=== PATIENT | female | born 1955 | race Caucasian/White ===

== ENCOUNTER 2022-07-25 15:57 | Inpatient (IN) | payer MEDICARE, SELFPAY ==
[2022-07-25] VITALS (22 sets, daily range): BP systolic 140–174; BP diastolic 65–85; PULSE 74–95; RESP 16–25; TEMP 37.6–37.9; O2SAT 93–99; BMI 33.4
--- NOTE | ~2022-07-25 | XR_ITS ---
EXAMINATION: XR chest 1V portable DATE: 07/26/2022 08:51 INDICATION: Leukocytosis. TECHNIQUE: A single frontal view of the chest was obtained. COMPARISON: None. FINDINGS: There are airspace opacities in the lower lung zones. No pleural effusion or pneumothorax. The heart size is normal. A right upper extremity peripherally inserted central venous catheter (PICC ) is seen with tip at the superior cavoatrial junction. IMPRESSION: 1. Airspace opacities in the lower lung zones, consistent with atelectasis or less likely pneumonia. Reviewed, dictated and finalized at location A. IMPRESSION: 1. Airspace opacities in the lower lung zones, consistent with atelectasis or l ess likely pneumonia.
[2022-07-25 16:31] LABS: Basophils Absolute Auto 0.1 K/mm3 (0.0-0.1); Basophils Percent Auto 0.3 % (0.2-1.2); Eosinophils Absolute Auto 0.1 K/mm3 (0-0.3); Eosinophils Percent Auto 0.5 % (0-4.4); Hematocrit 24.4 % (37.0-47.0); Hemoglobin 8.3 g/dL (12.0-15.0); Immature Granulocyte Absolute 0.62 K/mm3 (0.00-0.031); Immature Granulocyte Percent A 3.7 % (0-0.5); Mean Corpuscular Hemoglobin 31.4 pg (26-34); Mean Corpuscular Volume 92.4 fl (80-100); Mean Platelet Volume 8.6 fl (7.4-10.4); Monocytes Absolute Auto 1.4 K/mm3 (0.1-0.6); Monocytes Percent Auto 8.3 % (2.6-8.5); Neutrophils Percent Auto 78.2 % (45.5-73.1); Nucleated Red Blood Cells Absolute Auto 0.1 K/mm3 (0.0-0.012); Nucleated Red Blood Cells Perc 0.6 % (0.0-0.2); Platelet Count Result 338 k/mm3 (150-375); Red Blood Count 2.64 M/mm3 (4.2-5.4); White Blood Count 16.6 K/mm3 (4.5-10.0)
--- NOTE | 2022-07-25 16:31 | ED.RECABL ---
HPI - Recheck/Abnormal Lab/Rx General Chief Complaint: Recheck/Abnormal Lab/Rx Stated Complaint: abnormal labs Time Seen by Provider: 07/25/22 16:25 History of Present Illness HPI narrative: Pt sent in from rehab facility due to low sodium per pt. Pt has a history of similar in past. Pt jennifer any new symptoms. Related Data Allergies Allergy/AdvReac Type Severity Reaction Status Date / Time No Known Allergies Allergy Verified 07/20/22 17:06 Review of Systems Review of Systems: All systems reviewed & are unremarkable except as noted in HPI and below PMFSH Past Medical History Medical History (Updated 07/25/22 @ 18:02 by Meghan Rios III, DO) A-fib Social History Social History (Updated 07/20/22 @ 19:00 by Shanita Peng RN) Smoking status: Never smoker Alcohol intake: never Substance use type: does not use Gender identity (if verbalized by the patient): Female Sexual Orientation (if Verbalized by the Patient): Straight or Heterosexual Spiritual care concerns: No Exam Const: General: healthy appearing Nutritional Appearance: well nourished Orientation/consciousness: patient oriented x3 Limitations: no limitations HENMT: Head: normal to inspection Mouth: Yes Normal oral and palatal mucosa present Eyes: Conjunctivae: conjunctivae normal EOM: EOMs intact bilaterally Neck: Neck: normal visual inspection Chest: Chest palpation & inspection: normal inspection of the chest Resp: Effort & Inspection: normal respiratory effort Auscultation: clear to auscultation bilaterally Cardio: Rate: regular rate Rhythm: regular rhythm GI: GI Palp: Yes Soft to palpation Auscultation: normal bowel sounds Back/Spine/Pelvis: Back: no CVA tenderness Skin: General skin exam: normal color Rashes: no rashes Wounds: no wounds Neuro: General: patient oriented x3 and moves all extremities Cranial nerves: Yes Nystagmus not present Speech: normal speech Extrem: General: normal to inspection and no clubbing, cyanosis or edema Psych: Mental Status: mental status grossly normal Affect: normal affect Attitude: cooperative Course Vital Signs Vital signs: Vital Signs Temperature 99.6 F 07/25/22 16:00 Pulse Rate 75 07/25/22 16:00 Respiratory Rate 24 H 07/25/22 16:00 Blood Pressure 161/65 H 07/25/22 16:00 Pulse Oximetry 99 07/25/22 16:00 Oxygen Delivery Room Air 07/25/22 16:00 Temperature 99.6 F 07/25/22 16:00 Pulse Rate 77 07/25/22 17:30 Respiratory Rate 21 H 07/25/22 17:30 Blood Pressure 161/65 H 07/25/22 16:00 Pulse Oximetry 93 07/25/22 17:30 Oxygen Delivery Room Air 07/25/22 16:00 MDM - Recheck/Abnormal Lab/Rx Lab Data Result diagrams: 07/25/22 16:24 07/25/22 16:24 Labs: Lab Results 07/25/22 07/25/22 07/25/22 Range/Units 16:24 16:24 16:24 WBC 16.6 H (4.5-10.0) K/mm3 RBC 2.64 L (4.2-5.4) M/mm3 Hgb 8.3 L (12.0-15.0) g/dL Hct 24.4 L (37.0-47.0) % MCV 92.4 (80-100) fl MCH 31.4 (26-34) pg MCHC 34.0 (32-36) g/dl RDW 14.0 (11.5-14.5) % Plt Count 338 (150-375) k/mm3 MPV 8.6 (7.4-10.4) fl Immature Gran % (Auto) 3.7 H (0-0.5) % Neut % (Auto) 78.2 H (45.5-73.1) % Lymph % (Auto) 9.0 L (18.3-44.2) % [place] % (Auto) 8.3 (2.6-8.5) % Eos % (Auto) 0.5 (0-4.4) % Baso % (Auto) 0.3 (0.2-1.2) % Lymph # (Auto) 1.50 (0.9-3.2) K/mm3 [place] # (Auto) 1.4 H (0.1-0.6) K/mm3 Eos # (Auto) 0.1 (0-0.3) K/mm3 Baso # (Auto) 0.1 (0.0-0.1) K/mm3 Abs Immat Gran (auto) 0.62 H (0.00-0.031) K/mm3 Absolute Neuts (auto) 13.0 H (1.3-6.7) K/mm3 Absolute Nucleated RBC 0.1 H (0.0-0.012) K/mm3 Nucleated RBC % 0.6 H (0.0-0.2) % Sodium 118 L* (137-145) mmol/L Potassium 3.3 L (3.4-5.0) mmol/L Chloride 82 L (98-107) mmol/L Carbon Dioxide 28 (22-30) mmol/L Anion Gap 8 (8-16) mmol/L BUN 13 (7-17) mg/dL Creat
--- NOTE | 2022-07-25 16:33 | ECG_ITS ---
Measurements Intervals [place] Rate: 77 P: 24 FL: 163 QRS: -10 QRSD: 113 T: 31 QT: 412 QTc: 467 Interpretive Statements SINUS RHYTHM WITH OCCASIONAL SUPRAVENTRICULAR PREMATURE COMPLEXES INTRAVENTRICULAR CONDUCTION DELAY Electronically Signed On 07-26-2022 8:50:13 CDT by Jaylan Schroeder M.D.
[2022-07-25 16:53] LABS: Anion Gap 8 mmol/L (8-16); Blood Urea Nitrogen 13 mg/dL (7-17); Carbon Dioxide 28 mmol/L (22-30); Chloride 82 mmol/L (98-107); Estimated Glomerular Filt Rate > 60; Glucose 105 mg/dL (65-110); Potassium 3.3 mmol/L (3.4-5.0); Sodium 118 mmol/L (137-145)
[2022-07-25 17:02] LABS: Alanine Aminotransferase 21 U/L (6-35); Albumin Level 3.6 g/dL (3.5-5.1); Alkaline Phosphatase 79 U/L (38-126); Aspartate Amino Transferase 36 U/L (14-36); Bilirubin,Total 1.2 mg/dL (0.2-1.3)
[2022-07-25] MEDS: SODIUM CHLORIDE 0.9% IV 1,000 ML 125 ML IV CONT (19:40)
--- NOTE | 2022-07-25 20:24 | PM.IMHP ---
H&P: HPI History of Present Illness Date/Time: 07/25/22 20:24 Chief Complaint: Low-sodium Narrative: This is a 66-year-old female with past medical history significant for chronic hyponatremia, recent fall with trauma to the left upper extremity and left lower extremity, patient has been residing at rehabilitation center she was brought in today after lab draws showed a low sodium. Patient denies any fevers, rigors, chills, cough, sputum production, nausea, vomiting, diarrhea, abdominal pain, no dizziness, no near syncope no syncope, no lightheadedness, no chest pain, no shortness of breath, her appetite is good she has been participating with PT OT in the rehabilitation center. preliminary workup was significant for sodium was 118, chloride was 82, potassium was 3.3 [place] [address]. patient is been admitted for further evaluation, management and treatment. Review of Systems Review of Systems: Abnormal lab work low-sodium Constitutional: Constitutional: Denies chills, Denies fever(s), Denies malaise, Denies poor appetite and Denies weakness Eyes: Eyes: Denies change in vision ENT: Denies dysphagia, Denies vertigo, Denies dizziness and Denies odynophagia Cardiovascular: Cardiovascular: Denies chest pain, Denies syncope, Denies irregular heart rhythm, Denies lightheadedness and Denies palpitations Respiratory: Respiratory: Denies chest congestion, Denies cough, Denies excessive phlegm production, Denies pain on inspiration, Denies dyspnea and Denies wheezing Gastrointestinal: Gastrointestinal: Denies abdominal pain, Denies dyspepsia, Denies heartburn, Denies diarrhea, Denies nausea and Denies vomiting Genitourinary: Genitourinary: Denies dysuria Musculoskeletal: Musculoskeletal: Reports other ( left upper extremity and left lower extremity old fractures ) Integumentary/Breasts: Skin/Breast: Denies rash Psychiatric: Psychiatric: Reports no additional psychiatric complaints and Reports as per HPI Endocrine: Endocrine: Denies cold intolerance, Denies flushing, Denies heat intolerance, Denies polyphagia, Denies polydipsia and Denies palpitations Hematologic/Lymphatic: Hematologic/Lymphatic: Reports no additional hematologic/lymphatic complaints and Reports as per HPI Allergic/Immunologic: Allergic/Immunologic: Reports no additional allergic/immunologic complaints and Reports as per HPI [facility] Past Medical History Medical History (Updated 07/25/22 @ 18:02 by Meghan Rios III, DO) A-fib Social History Social History (Updated 07/20/22 @ 19:00 by Shanita Peng RN) Smoking status: Never smoker Alcohol intake: never Substance use: never Substance use type: does not use Gender identity (if verbalized by the patient): Female Sexual Orientation (if Verbalized by the Patient): Straight or Heterosexual Spiritual care concerns: No Meds Home Medications and Allergies Home Medications Medication Instructions Recorded Confirmed Type acetaminophen 325 mg tablet 325 mg PO Q6H 07/25/22 07/25/22 History baclofen 5 mg tablet 5 mg PO DAILY PRN Spasms 07/25/22 07/25/22 History bisacodyl 10 mg rectal suppository 10 mg RECTAL DAILY PRN Constipation 07/25/22 07/25/22 History calcium carbonate 200 mg calcium 200 mg PO Q2H PRN indigeston 07/25/22 07/25/22 History (500 mg) chewable tablet cefdinir 300 mg capsule 300 mg PO Q12H 07/25/22 07/25/22 History cholecalciferol (vitamin D3) 25 25 mcg PO BID 07/25/22 07/25/22 History mcg (1,000 unit) tablet clonidine HCl 0.1 mg tablet 0.1 mg PO TID PRN blood 07/25/22 07/25/22 History pressure-high diltiazem HCl 180 mg capsule,24 180 mg PO DAILY 07/25/22 07/25/22 History hr,extended release docusate sodium 100 mg capsule 100 mg PO BID 07/25/22 07/25/22 History doxycycline hyclate 100 mg tablet 100 mg PO BID 07/25/22 07/25/22 History enoxaparin 30 mg/0.3 mL 30 mg subcut Q12H 07/25/22 07/25/22 History subcutaneous syringe famotidine 20 mg tablet 20 mg PO DAILY
--- NOTE | 2022-07-25 22:46 | ADMGEN ---
This patient, Janett Anaya, was admitted to 3 [facility] Surg Room 315-01. Patient/family oriented to hospital policies and general routines including ID bracelet, bed and alarms, visiting hours, pain management, procedures, bathroom and other care routines, personal items, smoking policy, room service/diet, and visiting hours. Information on how to activate the Rapid Response Team has been discussed. Patient/Family are encouraged to report perceived risks to care and to ask questions if they do not understand what they are told or what they should do.
[2022-07-26] VITALS (10 sets, daily range): BP systolic 151–174; BP diastolic 64–80; PULSE 68–79; RESP 18; TEMP 36.4–37; O2SAT 96–98; BMI 33.4
[2022-07-26] MEDS: ONDANSETRON INJ 4 MG/2 ML VIAL IV PUSH ×2 (02:37→19:49)
[2022-07-26 06:03] LABS: Anion Gap 8 mmol/L (8-16); Blood Urea Nitrogen 10 mg/dL (7-17); Calcium 7.7 mg/dL (8.4-10.2); Carbon Dioxide 28 mmol/L (22-30); Chloride 85 mmol/L (98-107); Estimated CRCL calculation 84 ml/min; Estimated Glomerular Filt Rate > 60; Glucose 114 mg/dL (65-110); Magnesium 2.1 mg/dL (1.6-2.3); Potassium 3.3 mmol/L (3.4-5.0); Sodium 121 mmol/L (137-145)
[2022-07-26 06:30] LABS: Anion Gap 2 mmol/L (8-16); Blood Urea Nitrogen 9 mg/dL (7-17); Calcium 7.1 mg/dL (8.4-10.2); Carbon Dioxide 28 mmol/L (22-30); Chloride 84 mmol/L (98-107); Estimated CRCL calculation 99 ml/min; Estimated Glomerular Filt Rate > 60; Glucose 113 mg/dL (65-110); Potassium 3.5 mmol/L (3.4-5.0); Sodium 114 mmol/L (137-145)
[2022-07-26] MEDS: LIDOCAINE HCL 1% PF INJ 5 ML VIAL INFILTRATE (08:00)
[2022-07-26] MEDS: CEFDINIR 300 MG CAPSULE PO (09:14)
[2022-07-26] MEDS: CHOLECALCIFEROL 1,000 UNITS TABLET 1000 UNITS PO ×2 (09:15→16:41)
[2022-07-26] MEDS: dilTIAZem HCL CD 180 MG CAP.ER.24H PO (09:15)
[2022-07-26] MEDS: DOCUSATE SODIUM 100 MG CAPSULE PO ×2 (09:15→16:42)
[2022-07-26] MEDS: SODIUM CHLORIDE 1 GM TABLET PO ×2 (09:15→16:42)
[2022-07-26] MEDS: ROSUVASTATIN 10 MG TABLET PO (09:15)
[2022-07-26] MEDS: SENNA/DOCUSATE SODIUM TABLET 1 TAB PO ×2 (09:15→16:43)
[2022-07-26] MEDS: lisinopriL 20 MG TABLET PO ×2 (09:16→16:42)
[2022-07-26] MEDS: MAGNESIUM OXIDE 400 MG TABLET PO ×2 (09:16→16:42)
[2022-07-26] MEDS: ACETAMINOPHEN 325 MG TABLET PO (09:16)
[2022-07-26] MEDS: DOXYCYCLINE HYCLATE 100 MG TABLET PO (09:17)
[2022-07-26] MEDS: ENOXAPARIN 30 MG/0.3 ML SYRINGE SUB-Q ×2 (09:17→20:14)
[2022-07-26] MEDS: TOLNAFTATE 1% POWDER 45 GM BTL 1 APPLIC TOPICAL ×2 (09:18→20:14)
[2022-07-26] MEDS: FAMOTIDINE 20 MG TABLET PO (09:18)
[2022-07-26] MEDS: polyethylene glycoL 3350 17 GM POWD.PACK PO (09:24)
--- NOTE | 2022-07-26 11:00 | PM.IMPN ---
Progress Note: A&P Assessment and Plan (1) Hyponatremia: Code(s): E87.1 - Hypo-osmolality and hyponatremia Status: Acute Assessment and Plan: Sodium 114 this am is currently 118 States she runs low any way Sodium tabs continued from home at 1000mg TID IV fluids continued serial sodiums Q6H cautious normalization of sodium about 4-6 per 24 hours Nephrology consulted Baseline appears to be 123-129 (2) Multiple fractures: Code(s): T07.XXXA - Unspecified multiple injuries, initial encounter Status: Acute Assessment and Plan: fall precautions supportive care PT OT Non weight bearing on the left upper and lower Hip and arm fracture on the left from a fall (3) Afib: Code(s): I48.91 - Unspecified atrial fibrillation Status: Acute Assessment and Plan: Stable at this time Continue Cardizem Trend heart rate and rhythm Adjust therapy as indicated (4) Hypertension: Code(s): I10 - Essential (primary) hypertension Status: Chronic Assessment and Plan: Current BP is 159/64 Continue home lisinopril, clonidine Trend BP Adjust therapy as indicated (5) Leukocytosis: Code(s): D72.829 - Elevated white blood cell count, unspecified Status: Acute Assessment and Plan: WBC elevated at 16.6 Stop cefdinir start ceftriaxone and azithromycin Unknown if this is a recurrent UTI or PNA Chest xray appears to have atelectasis vs PNA trend labs Blood cultures ordered Time Spent With Patient Time with patient: Greater than 35 minutes Subjective Date/time seen: 07/26/22 1100 Interval history: 07/26/22 1100 Patient states that she has been urinating okay and denies any chest pain, shortness breast, nausea, vomiting. Patient stated that she has been weak however she does blame that on her and nonweightbearing status on her leg or arm. She denies having any urination issues and states that she is urinating okay. She states that her sodium is always low and that she takes sodium tabs 3 times a day. She also states that she does not sleep at night and sometimes goes long periods of times without sleep. Sodium is currently 118. Patient denies any abnormal swelling. Patient has unknown baseline sodium. 07/25/22? 20:24 ?This is a 66-year-old female with past medical history significant for chronic hyponatremia,? recent fall with trauma to the left upper extremity and left lower extremity, patient has been residing at rehabilitation center she was brought in today after lab draws showed a low sodium.? Patient denies any fevers, rigors, chills, cough, sputum production, nausea, vomiting, diarrhea, abdominal pain, no dizziness, no near syncope no syncope, no lightheadedness, no chest pain, no shortness of breath, her appetite is good she has been participating with PT OT in the rehabilitation center. preliminary workup was significant for sodium was 118, chloride was 82, potassium was 3.3 [place]BC [place] [address]26. patient is been admitted for further evaluation, management and treatment. Review of Systems Review of Systems: All systems reviewed & are unremarkable except as noted in HPI and below Exam Const: General: comfortable, no acute distress, well developed, alert and awake Nutritional Appearance: overweight Orientation/consciousness: patient oriented x3 HENMT: Head: normal to inspection, normocephalic and atraumatic Ears: hearing grossly normal bilaterally Face and sinus: normal facial exam Eyes: General: appearance normal, both eyes and all related structures Pupils: Equal, round and reactive pupils present EOM: EOMs intact bilaterally Neck: Neck: full ROM, no lymphadenopathy and no JVD Thyroid: thyroid normal Lymphatic: no lymphadenopathy noted Resp: Effort & Inspection: normal respiratory effort and able to speak in complete sentences Auscultation: clear to auscultat
--- NOTE | 2022-07-26 11:00 | P.PNIM_ITS ---
Progress Note: A&P Assessment and Plan (1) Hyponatremia: Code(s): E87.1 - Hypo-osmolality and hyponatremia Status: Acute Assessment and Plan: * Sodium 114 this am is currently 118 * States she runs low any way * Sodium tabs continued from home at 1000mg TID * IV fluids continued * serial sodiums Q6H * cautious normalization of sodium about 4-6 per 24 hours * Nephrology consulted * Baseline appears to be 123-129 (2) Multiple fractures: Code(s): T07.XXXA - Unspecified multiple injuries, initial encounter Status: Acute Assessment and Plan: * fall precautions * supportive care * PT OT * Non weight bearing on the left upper and lower * Hip and arm fracture on the left from a fall (3) Afib: Code(s): I48.91 - Unspecified atrial fibrillation Status: Acute Assessment and Plan: * Stable at this time * Continue Cardizem * Trend heart rate and rhythm * Adjust therapy as indicated (4) Hypertension: Code(s): I10 - Essential (primary) hypertension Status: Chronic Assessment and Plan: * Current BP is 159/64 * Continue home lisinopril, clonidine * Trend BP * Adjust therapy as indicated (5) Leukocytosis: Code(s): D72.829 - Elevated white blood cell count, unspecified Status: Acute Assessment and Plan: * WBC elevated at 16.6 * Stop cefdinir start ceftriaxone and azithromycin * Unknown if this is a recurrent UTI or PNA * Chest xray appears to have atelectasis vs PNA * trend labs * Blood cultures ordered Time Spent With Patient Time with patient: Greater than 35 minutes Subjective Date/time seen: 07/26/22 1100 Interval history: 07/26/22 1100 Patient states that she has been urinating okay and denies any chest pain, shortness breast, nausea, vomiting. Patient stated that she has been weak however she does blame that on her and nonweightbearing status on her leg or arm. She denies having any urination issues and states that she is urinating okay. She states that her sodium is always low and that she takes sodium tabs 3 times a day. She also states that she does not sleep at night and sometimes goes long periods of times without sleep. Sodium is currently 118. Patient denies any abnormal swelling. Patient has unknown baseline sodium. 08/29/22? 20:24 ?This is a 66-year-old female with past medical history significant for chronic hyponatremia,? recent fall with trauma to the left upper extremity and left lower extremity, patient has been residing at rehabilitation center she was brought in today after lab draws showed a low sodium.? Patient denies any fevers, rigors, chills, cough, sputum production, nausea, vomiting, diarrhea, abdominal pain, no dizziness, no near syncope no syncope, no lightheadedness, no chest pain, no shortness of breath, her appetite is good she has been participating with PT OT in the rehabilitation center. preliminary workup was significant for sodium was 118, chloride was 82, potassium was 3.3 [place]BC was [address]672. patient is been admitted for further evaluation, management and treatment. Review of Systems Review of Systems: All systems reviewed & are unremarkable except as noted in HPI and below Exam Const: General: comfortable, no acute distress, well developed, alert and awake Nutritional Appearance: overweight Orientation/consciousness: patient oriented x3
[2022-07-26 11:25] LABS: Anion Gap 8 mmol/L (8-16); Blood Urea Nitrogen 8 mg/dL (7-17); Calcium 7.6 mg/dL (8.4-10.2); Carbon Dioxide 28 mmol/L (22-30); Chloride 84 mmol/L (98-107); Estimated CRCL calculation 84 ml/min; Estimated Glomerular Filt Rate > 60; Glucose 155 mg/dL (65-110); Potassium 3.1 mmol/L (3.4-5.0); Sodium 120 mmol/L (137-145)
[2022-07-26 11:28] LABS: NT Pro B Type Natriuretic Pept 306 pg/mL (5-100)
--- NOTE | 2022-07-26 12:21 | PM.CNNEP ---
Assessment and Plan Assessment and plan (1) Hyponatremia: Code(s): E87.1 - Hypo-osmolality and hyponatremia Status: Acute Assessment and Plan: acute on chronic records indicate she runs ~ 123 - 129 as far back as 2018 sodium up to 120 (from admission 114) etiology of acute decline: pain use of narcotics volume depletion(?) check urine electrolytes goal of therapy is rate of change in sodium of 4 - 6mmol/L in 24 hours but not to exceed 8mmol/L current interventions = salt tabs AND IVFs (2) Multiple fractures: Code(s): T07.XXXA - Unspecified multiple injuries, initial encounter Status: Acute Assessment and Plan: secondary to fall supportive care pain medications PT/OT as tolerated fall precautions (3) Hypertension: Code(s): I10 - Essential (primary) hypertension Status: Chronic Assessment and Plan: fluctuating but suspect pain issues playing a role follow trend of hemodynamics Long and extensive discussion (> 20 minutes) with patient and family at bedside regarding her hyponatremia as well as need for close monitoring to ensure appropriate correction of this electrolytes abnormality. Will continue to follow. History of Present Illness Reason for Consult Consult date: 07/26/22 Reason for consult: hyponatremia (acute on chronic) Chief Complaint Chief complaint: hyponatremia History of Present Illness Narrative: The patient is a 66-year-old female with a past medical history as outlined below presented to [facility] Emergency room for further evaluation of hyponatremia. The patient was initially admitted to [facility] after she sustained a fall resulting in injury to her left upper extremity and left lower extremity. She apparently fell on a concrete after missing one of her steps but there is no injury to her head or loss of consciousness, dizziness, or lightheadedness prior to or after the fall. Imaging studies demonstrated a left elbow fracture with dislocation as well as a left tibial plateau fracture. . She underwent open reduction internal fixation of the tibial plateau fracture and casting of her left upper extremity fracture. Eventually she was deemed stable for transfer to next level of care and she was sent to the [facility] for further physical and occupational therapy. During her stay in the [facility], she was noted have fluctuating sodium levels but did not appear to be symptomatic from it. Labs done this morning showed a sodium level of 114 and given her lack of IV access and the concern that she would require more closer monitoring and intervention, she was sent to [facility] Emergency room for further intervention. She was subsequently admitted to the hospital for further management and therapy of this issue as well. Renal consultation was requested due to acute on chronic hyponatremia. The patient has had issues and problems with hyponatremia since at least 2017 with her normal baseline sodium level running anywhere from 123-129 millimoles per L. apparently, during her hospital stay at [facility], her sodium level was fluctuating in this range as well. As already mentioned, in spite of this issue, she does not have any neurological sequelae to report with regard to this chronic issue. Currently, the time my visit, she does not appear to be in acute distress. Review of Systems Review of Systems: As per HPI. [facility] Past Medical History Medical History (Updated 07/26/22 @ 13:34 by Cecelia Fajardo MD) A-fib Family History Family History (Updated 07/26/22 @ 06:16 by Rosibel Shah RN) Mother Enlarged heart Father Malignant neoplasm of prostate Sibling CHF (congestive heart failure) Alcohol abuse Sibling Acute myocardial infarction Sibling Failure to thrive Alcohol abuse Social History Social History (Updated 07/20/22 @ 19:00 by Shanita Nash
[2022-07-26 14:41] LABS: Anion Gap 3 mmol/L (8-16); Blood Urea Nitrogen 10 mg/dL (7-17); Calcium 7.3 mg/dL (8.4-10.2); Carbon Dioxide 28 mmol/L (22-30); Chloride 86 mmol/L (98-107); Estimated CRCL calculation 73 ml/min; Estimated Glomerular Filt Rate > 60; Glucose 140 mg/dL (65-110); Potassium 3.3 mmol/L (3.4-5.0); Sodium 117 mmol/L (137-145)
[2022-07-26] MEDS: SODIUM CHLORIDE 0.9% IV 1,000 ML 55 ML IV CONT (16:43)
[2022-07-26] MEDS: ACETAMINOPHEN 500 MG TABLET 1000 MG PO ×2 (16:52→21:31)
[2022-07-26 18:09] LABS: Creatinine Urine 79.1 mg/dL; Total Protein Urine Random 18 mg/dL; Urea Random Urine 437 MG/DL
[2022-07-26 18:40] LABS: Sodium Urine Random 82 meq/L
[2022-07-26 19:03] LABS: Sodium 120 mmol/L (137-145)
[2022-07-26] MEDS: cloNIDine HCL 0.1 MG TABLET PO (21:31)
[2022-07-26 23:14] LABS: Sodium 115 mmol/L (137-145)
[2022-07-27] VITALS: PULSE 69
[2022-07-27] MEDS: ACETAMINOPHEN 500 MG TABLET 1000 MG PO ×2 (03:36→08:14)
[2022-07-27 04:58] LABS: Basophils Percent Auto 0.4 % (0.2-1.2); Eosinophils Absolute Auto 0.2 K/mm3 (0-0.3); Eosinophils Percent Auto 1.6 % (0-4.4); Hematocrit 24.3 % (37.0-47.0); Immature Granulocyte Absolute 0.36 K/mm3 (0.00-0.031); Immature Granulocyte Percent A 3.6 % (0-0.5); Lymphocytes Absolute Auto 1.25 K/mm3 (0.9-3.2); Lymphocytes Percent Auto 12.5 % (18.3-44.2); Mean Corpuscular HGB Conc 32.9 g/dl (32-36); Mean Corpuscular Hemoglobin 31.4 pg (26-34); Mean Corpuscular Volume 95.3 fl (80-100); Mean Platelet Volume 8.5 fl (7.4-10.4); Monocytes Absolute Auto 0.8 K/mm3 (0.1-0.6); Monocytes Percent Auto 8.4 % (2.6-8.5); Neutrophils Absolute Auto 7.4 K/mm3 (1.3-6.7); Neutrophils Percent Auto 73.5 % (45.5-73.1); Nucleated Red Blood Cells Perc 0.4 % (0.0-0.2); Platelet Count Result 306 k/mm3 (150-375); Red Blood Count 2.55 M/mm3 (4.2-5.4); Red Cell Distribution Width 14.4 % (11.5-14.5)
[2022-07-27 05:22] LABS: Alanine Aminotransferase 18 U/L (6-35); Albumin Level 3.4 g/dL (3.5-5.1); Alkaline Phosphatase 80 U/L (38-126); Anion Gap 8 mmol/L (8-16); Aspartate Amino Transferase 24 U/L (14-36); Blood Urea Nitrogen 7 mg/dL (7-17); Calcium 7.7 mg/dL (8.4-10.2); Carbon Dioxide 27 mmol/L (22-30); Chloride 86 mmol/L (98-107); Estimated CRCL calculation 84 ml/min; Estimated Glomerular Filt Rate > 60; Glucose 107 mg/dL (65-110); Magnesium 2.3 mg/dL (1.6-2.3); Potassium 3.3 mmol/L (3.4-5.0); Sodium 121 mmol/L (137-145)
[2022-07-27 06:00] VITALS: BP 159/69; PULSE 72; RESP 18; TEMP 36.3; O2SAT 97
[2022-07-27 08:00] VITALS: PULSE 66
[2022-07-27] MEDS: MAGNESIUM OXIDE 400 MG TABLET PO (08:14)
[2022-07-27] MEDS: POTASSIUM CHLORIDE 20 MEQ TABLET 40 MEQ PO ×2 (08:14→11:07)
[2022-07-27] MEDS: ENOXAPARIN 30 MG/0.3 ML SYRINGE SUB-Q (08:14)
[2022-07-27] MEDS: FUROSEMIDE 10 MG TABLET PO (08:14)
[2022-07-27] MEDS: lisinopriL 20 MG TABLET PO (08:14)
[2022-07-27] MEDS: SODIUM CHLORIDE 1 GM TABLET PO (08:14)
[2022-07-27] MEDS: ROSUVASTATIN 10 MG TABLET PO (08:14)
[2022-07-27] MEDS: DOCUSATE SODIUM 100 MG CAPSULE PO (08:14)
[2022-07-27] MEDS: CHOLECALCIFEROL 1,000 UNITS TABLET 1000 UNITS PO (08:14)
[2022-07-27] MEDS: SENNA/DOCUSATE SODIUM TABLET 1 TAB PO (08:14)
[2022-07-27] MEDS: dilTIAZem HCL CD 180 MG CAP.ER.24H PO (08:15)
[2022-07-27] MEDS: FAMOTIDINE 20 MG TABLET PO (08:15)
[2022-07-27] MEDS: TOLNAFTATE 1% POWDER 45 GM BTL 1 APPLIC TOPICAL (08:19)
--- NOTE | 2022-07-27 08:39 | PCOTNOTE ---
Attempted to see pt. for occupational therapy evaluation. Hospitalist indicated pt. need for A-frame splint . Spoke with care coordination, who is following up with rehab facility and will follow up with therapy department regarding pt. needs, if required for safety prior to getting pt. out of bed. Following.
--- NOTE | 2022-07-27 09:00 | P.DS_ITS ---
DS: Admitting Diagnosis Discharge Date 07/27/22 0900 Admitting Diagnosis hyponatremia/leukocytosis DS: Discharge Diagnosis Discharge Diagnosis (1) Hyponatremia: Code(s): E87.1 - Hypo-osmolality and hyponatremia Status: Acute Assessment and Plan: * Sodium 114 this am is currently 118 * States she runs low any way * Sodium tabs continued from home at 1000mg TID * IV fluids continued * serial sodiums Q6H * cautious normalization of sodium about 4-6 per 24 hours * Nephrology consulted * Baseline appears to be 123-129 (2) Multiple fractures: Code(s): T07.XXXA - Unspecified multiple injuries, initial encounter Status: Acute Assessment and Plan: * fall precautions * supportive care * PT OT * Non weight bearing on the left upper and lower * Hip and arm fracture on the left from a fall (3) Afib: Code(s): I48.91 - Unspecified atrial fibrillation Status: Acute Assessment and Plan: * Stable at this time * Continue Cardizem * Trend heart rate and rhythm * Adjust therapy as indicated (4) Hypertension: Code(s): I10 - Essential (primary) hypertension Status: Chronic Assessment and Plan: * Current BP is 159/64 * Continue home lisinopril, clonidine * Trend BP * Adjust therapy as indicated (5) Leukocytosis: Code(s): D72.829 - Elevated white blood cell count, unspecified Status: Acute Assessment and Plan: * WBC elevated at 16.6 * Stop cefdinir start ceftriaxone and azithromycin * Unknown if this is a recurrent UTI or PNA * Chest xray appears to have atelectasis vs PNA * trend labs * Blood cultures ordered DS: Summary Hospital Course Hospital Course: Patient is a 66-year-old female with a past medical history of AFib, hyponatremia, multiple fractures that presented to the ED with hyponatremia. Upon arrival patient was noted to have a Na of 114, and a WBC of 16. NS was started and nephrology has been consulted. Sodium has climbed and is currently 121. She was also started on azithromycin and ceftriaxone for possible PNA. WBC have decreased and is currently 10.0. Patient has been working with PT/OT and has a non weight bearing status. Talked with Dr. Fajardo who stated that he baseline appears to be 123-129 and is low chronically. He feels that the patient should be a bit higher, however, he stated that if she can get IV access he can follow with her over at the rehab center with a hospitalist. She otherwise is stable for DC. She will be going to the facility with a midline to ensure that she is able to have IV medications if indicated. Treatment for PNA will continue as the pain is probably causing her breathing to be shallow. She feels ok and is ok with return to the rehab center. Care coordination did reach out to the facility who stated that they wanted her to get IV access to be able to continue treatment while correcting electrolytes. Did receive a call about her sodium being 117. RN called the motor vehicle assembler who stated that he was comfortable with discharge. Patient is also wanting DC. clinical pharmacy coordinator did reach out the hospitalist at the rehab, and stated that they only wanted her here to get a picc line placed for better sodium control. Status at Discharge Functional status at discharge: uses cane/walker Overall status at discharge: patient is progressing back to baseline Time Spent with Patient Time attestation: Total time s
--- NOTE | 2022-07-27 09:00 | PM.DS ---
DS: Admitting Diagnosis Discharge Date 07/27/22 0900 Admitting Diagnosis hyponatremia/leukocytosis DS: Discharge Diagnosis Discharge Diagnosis (1) Hyponatremia: Code(s): E87.1 - Hypo-osmolality and hyponatremia Status: Acute Assessment and Plan: Sodium 114 this am is currently 118 States she runs low any way Sodium tabs continued from home at 1000mg TID IV fluids continued serial sodiums Q6H cautious normalization of sodium about 4-6 per 24 hours Nephrology consulted Baseline appears to be 123-129 (2) Multiple fractures: Code(s): T07.XXXA - Unspecified multiple injuries, initial encounter Status: Acute Assessment and Plan: fall precautions supportive care PT OT Non weight bearing on the left upper and lower Hip and arm fracture on the left from a fall (3) Afib: Code(s): I48.91 - Unspecified atrial fibrillation Status: Acute Assessment and Plan: Stable at this time Continue Cardizem Trend heart rate and rhythm Adjust therapy as indicated (4) Hypertension: Code(s): I10 - Essential (primary) hypertension Status: Chronic Assessment and Plan: Current BP is 159/64 Continue home lisinopril, clonidine Trend BP Adjust therapy as indicated (5) Leukocytosis: Code(s): D72.829 - Elevated white blood cell count, unspecified Status: Acute Assessment and Plan: WBC elevated at 16.6 Stop cefdinir start ceftriaxone and azithromycin Unknown if this is a recurrent UTI or PNA Chest xray appears to have atelectasis vs PNA trend labs Blood cultures ordered DS: Summary Hospital Course Hospital Course: Patient is a 66-year-old female with a past medical history of AFib, hyponatremia, multiple fractures that presented to the ED with hyponatremia. Upon arrival patient was noted to have a Na of 114, and a WBC of 16. NS was started and nephrology has been consulted. Sodium has climbed and is currently 121. She was also started on azithromycin and ceftriaxone for possible PNA. WBC have decreased and is currently 10.0. Patient has been working with PT/OT and has a non weight bearing status. Talked with Dr. Fajardo who stated that he baseline appears to be 123-129 and is low chronically. He feels that the patient should be a bit higher, however, he stated that if she can get IV access he can follow with her over at the rehab center with a hospitalist. She otherwise is stable for DC. She will be going to the facility with a midline to ensure that she is able to have IV medications if indicated. Treatment for PNA will continue as the pain is probably causing her breathing to be shallow. She feels ok and is ok with return to the rehab center. Care coordination did reach out to the facility who stated that they wanted her to get IV access to be able to continue treatment while correcting electrolytes. Did receive a call about her sodium being 117. RN called the bench molder apprentice who stated that he was comfortable with discharge. Patient is also wanting DC. import export coordinator did reach out the hospitalist at the rehab, and stated that they only wanted her here to get a picc line placed for better sodium control. Status at Discharge Functional status at discharge: uses cane/walker Overall status at discharge: patient is progressing back to baseline Time Spent with Patient Time attestation: Total time spent providing and/or coordinating discharge services: 37 minutes Time spent: Greater than 30 minutes Specific discharge activities: Diagnostic testing, chart review, developing a treatment plan, education, care coordination documentation, physical exam, result review Exam Const: General: comfortable, no acute distress, well developed, alert and awake Nutritional Appearance: overweight Orientation/consciousness: patient oriented x3 Other: patient is laying in bed [id number]
[2022-07-27 10:25] LABS: Sodium 117 mmol/L (137-145)
[2022-07-27] MEDS: ONDANSETRON INJ 4 MG/2 ML VIAL IV PUSH (11:37)
[2022-07-27 12:00] VITALS: PULSE 80
[2022-07-27 13:37] LABS: Albumin Level 3.3 g/dL (3.5-5.1); Anion Gap 2 mmol/L (8-16); Blood Urea Nitrogen 8 mg/dL (7-17); Calcium 7.3 mg/dL (8.4-10.2); Carbon Dioxide 28 mmol/L (22-30); Chloride 87 mmol/L (98-107); Estimated CRCL calculation 73 ml/min; Estimated Glomerular Filt Rate > 60; Glucose 155 mg/dL (65-110); Magnesium 2.1 mg/dL (1.6-2.3); Phosphorus 2.3 mg/dL (2.5-4.5); Potassium 3.9 mmol/L (3.4-5.0); Sodium 117 mmol/L (137-145)
[2022-08-02 20:33] LABS: Chloride Rand Ur 61 mmol/L (32-290); Chloride/Creatinine Rand Ur 95 (38-318); Creatinine Random Urine 64 mg/dL (20-275)
== END 2022-07-27 13:30 | DRG 640 ==
LOC: ANHED 18:02 → ANH3MEDSUR 19:45
PROVIDERS: Emergency Medicine; Internal Medicine; Internal Medicine Nephrology; Admitting Provider Internal Medicine; Emergency Provider Emergency Medicine; Visit Provider Nurse Practitioner
DX: E87.1 Hypo-osmolality and hyponatremia (principal); J18.9 Pneumonia, unspecified organism; D72.829 Elevated white blood cell count, unspecified; I48.91 Unspecified atrial fibrillation; I10 Essential (primary) hypertension; S42.402D Unspecified fracture of lower end of left humerus, subsequent encounter for fracture with routine healing; S82.142D Displaced bicondylar fracture of left tibia, subsequent encounter for closed fracture with routine healing; W19.XXXD Unspecified fall, subsequent encounter; Z79.899 Other long term (current) drug therapy
CPT/HCPCS: 36415; 36569; 71045; 80048; 80053; 80069; 80076; 81050; 82436; 82570; 83735; 83880; 84100; 84156; 84295; 84300; 84540; 85025; 87040; 93005; 96361; 96372; 96374; 96375; 99285; A9270; C1751; G0378; J0456; J0696; J1650; J2405; J7030